=== PATIENT | male | born 1980 | race Caucasian/White ===

== ENCOUNTER 2021-11-12 15:20 | Emergency (ER) | payer SELFPAY | END 2021-11-12 17:17 | disposition home or self-care (01) | LOC: JP.ED 15:20 | DX: R55 Syncope and collapse (principal); F17.210 Nicotine dependence, cigarettes, uncomplicated | CPT/HCPCS: 36415; 80048; 83605; 85025; 93005; 93010; 99282; 99284 ==

== ENCOUNTER 2021-11-12 21:43 | Emergency (ER) | payer SELFPAY ==
[2021-11-12] MEDS ORDERED: Meclizine 25 MG Tab PO ONE (22:41)
== END 2021-11-13 00:09 | disposition home or self-care (01) ==
LOC: JP.ED 21:43
DX: H81.10 Benign paroxysmal vertigo, unspecified ear (principal); F17.210 Nicotine dependence, cigarettes, uncomplicated; Z79.899 Other long term (current) drug therapy; Z86.16 Personal history of COVID-19
CPT/HCPCS: 36415; 70450; 85651; 86140; 99284; A9270

== ENCOUNTER 2023-03-12 01:09 | Emergency (ER) | payer MEDICAID | END 2023-03-12 01:31 | disposition home or self-care (01) | LOC: JP.ED 01:09 | DX: F41.9 Anxiety disorder, unspecified (principal); F17.210 Nicotine dependence, cigarettes, uncomplicated; Z86.16 Personal history of COVID-19 | CPT/HCPCS: 99283 ==

== ENCOUNTER 2024-01-23 22:02 | Emergency (ER) | payer MEDICAID, OTHER | END 2024-01-23 22:50 | disposition home or self-care (01) | LOC: JP.ED 22:02 | DX: R06.02 Shortness of breath (principal); Z79.899 Other long term (current) drug therapy | CPT/HCPCS: 71046; 71046-26; 99283; 99284 ==